=== PATIENT | female | born 1995 | race Caucasian/White ===

== ENCOUNTER 2017-11-30 00:45 | Emergency (ER) | payer OTHER ==
[2017-11-30 01:52] LABS: HIV (1/2) Antibody/Antigen Non-Reactive (NonReactive); HIV 1/2 INDEX 0.09 S/CO (<1.00); Hep C IgG Ab Non-Reactive (NonReactive); Hep C Index 0.49 S/CO (0-0.79)
[2017-11-30 02:49] LABS: HBSAB Concentration 12.75 mIU/mL; Hep B Surf AB Reactive (NonReactive)
== END 2017-11-30 01:05 | disposition home or self-care (01) ==
LOC: ERS 00:45
DX: S61.233A Puncture wound without foreign body of left middle finger without damage to nail, initial encounter (principal); F41.9 Anxiety disorder, unspecified; W27.3XXA Contact with needle (sewing), initial encounter
CPT/HCPCS: 86706; 86803; 87389; 99283